=== PATIENT | male | born 2000 | race Caucasian/White ===

== ENCOUNTER 2021-05-08 17:07 | Inpatient (IN) | payer SELFPAY ==
[2021-05-08 17:12] VITALS: BMI 32.1
[2021-05-08 17:14] VITALS: BP 144/85; PULSE 73; RESP 20; TEMP 36.7; O2SAT 95
[2021-05-08 17:34] VITALS: BMI 32.1
[2021-05-08 21:37] VITALS: BP 137/89; PULSE 88; RESP 18; TEMP 36.7; O2SAT 90
[2021-05-09 06:00] VITALS: BP 125/69; PULSE 55; RESP 16; TEMP 36.1; O2SAT 98
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
--- NOTE | 2021-05-09 13:12 | NPU.GN ---
[facility] Group Topic:Communications General Mood of Group: The patient was dressed appropriately. He had good hygiene. He did participate in the group. The topic was communication. Communicating with doctors, family, friends and even authorities such as probation and parole officers. The patients were given a card a piece that asked two to three questions, for example, one was What words would you use to describe yourself? What words would others use to describe you? This opened everyone up to conversation. Every one participated and spoke with each other. We spoke about ways to speak with your doctor and ways to speak with social economist to get the help that they need while they are in Neuro psych. Estela opened up in group and then after group. He expressed information that was pertinent to the doctor. Estela has a good understanding of communication at this time.
[2021-05-09 14:00] VITALS: BP 120/82; PULSE 86; RESP 18; TEMP 36.8; O2SAT 98
[2021-05-09 20:45] VITALS: BP 151/92; PULSE 66; RESP 18; TEMP 36.4; O2SAT 96
[2021-05-09] MEDS: ARIPiprazole 10 mg Tablet 5 MG PO (21:57)
[2021-05-10 06:00] VITALS: BP 151/92; PULSE 66; RESP 18; TEMP 36.4; O2SAT 96
[2021-05-10] MEDS: ARIPiprazole 10 mg Tablet 5 MG PO (09:09)
--- NOTE | 2021-05-10 13:57 | P.PN_ITS ---
Subjective NPU Subjective: Interval history: Patient presents today reporting that he has noissues with the medication. Feeling better overall and happy about the plan for getting things together treatment castillo hopefully by Thursday. He reports that he is eating okay and denies any challenges only slight improvements on the medication. Mental Status Exam MSE Comments: This is an obese, , male, with dreads with hospital scrubs on with limited grooming and adequate eye contact. No abnormal movements except for mild psychomotor retardation. Cooperative with exam in no acute distress. Speech was more normal rate and volume. Mood described as good, ; affect congruent. Thought process, organized. Thought content: patient denied suicidal or homicidal ideation, there were no delusions noted, but he did endorse paranoia. He endorsed hearing voices but not sure if that was something that is his baseline with him or due to the methamphetamine. Attention and concentration were intact, and memory appeared somewhat reliable, but none were formally tested. He is alert and oriented times three. Insight and judgment appeared improving and impulse control appeared fair. Vitals/I&O/Wt Last Vital Signs Temp 97.5 F L 05/10/21 06:00 Pulse 66 05/10/21 06:00 Resp 18 05/10/21 06:00 BP 151/92 05/10/21 06:00 Pulse Ox 96 05/10/21 06:00 A&P Additional A&P Information (1) Amphetamine abuse: (2) Psychosis: (3) ADHD: (4) History of trauma: Additional A&P Information This is a 21-year-old, , male, with long history of addiction and mental health services back into his adolescence with history of trauma and post-traumatic stress disorder, who presents reporting he would like help with his addiction, and to possibly get mood stabilizer or something for his psychosis. RECOMMENDATION AND PLAN: 1. Continue current medication. 2. Encourage individual, group, and milieu therapy. 3. Continue q-15 minute checks for safety. Involuntary Hold Information 96 Hour Hold: 96 Hour Involuntary Admission: No Attestations NPU Medical Necessity Statement*: Inpatient hospitalization is medically necessary and the clinically appropriate intervention, at this time. We will monitor medications and make changes as indicated. Likely length of stay is 1-3 days. Coding Level of Care Code Acute Agricultural Sales Representative for Shalom Agosto
[2021-05-10 14:00] VITALS: BP 126/79; PULSE 74; RESP 17; TEMP 36.7; O2SAT 94
[2021-05-10 21:47] VITALS: BP 126/79; PULSE 74; RESP 17; O2SAT 94
[2021-05-11 06:00] VITALS: BP 146/63; PULSE 75; RESP 18; TEMP 37; O2SAT 100
[2021-05-11] MEDS: ARIPiprazole 10 mg Tablet 5 MG PO (09:24)
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
[2021-05-11 18:07] VITALS: BP 146/63; PULSE 75; RESP 18; TEMP 37; O2SAT 100
== END 2021-05-11 18:35 | disposition home or self-care (01) | DRG 885 ==
PROVIDERS: Admitting Provider Psychiatry & Neurology Psychiatry; Visit Provider Psychiatry & Neurology Psychiatry
DX: F29 Unspecified psychosis not due to a substance or known physiological condition (principal); F15.10 Other stimulant abuse, uncomplicated; F12.90 Cannabis use, unspecified, uncomplicated; F90.9 Attention-deficit hyperactivity disorder, unspecified type; F43.10 Post-traumatic stress disorder, unspecified